=== PATIENT | male | born 1995 | race Caucasian/White ===

== ENCOUNTER → 2019-02-26 09:01 | Outpatient (CLI) | payer MEDICAID, SELFPAY ==
[2019-02-26 08:37] VITALS: BMI 34.7
[2019-03-02 14:07] LABS: B. henselae IgM Negative titer (Neg:<1:100); B. quintana IgG Negative titer (Neg:<1:320)
[2019-03-02 16:16] LABS: B. quintana IgM Negative titer (Neg:<1:100)
== END ==
PROVIDERS: Referring Provider Surgery; Visit Provider Surgery
DX: R59.0 Localized enlarged lymph nodes (principal)
CPT/HCPCS: 36415; 86611

== ENCOUNTER → 2019-04-29 | Outpatient (CLI) | payer MEDICAID, SELFPAY ==
[2019-04-29 10:07] VITALS: BMI 34.7
== END | disposition home or self-care (01) ==
LOC: LABSPEC 10:26
PROVIDERS: PCP Family Medicine; Visit Provider Surgery
DX: L02.91 Cutaneous abscess, unspecified (principal)
CPT/HCPCS: 87070; 87075; 87205